=== PATIENT | female | born 1955 | race Caucasian/White ===

== ENCOUNTER 2023-07-17 12:00 | Day surgery (SDC) | payer OTHER ==
[~2023-07-17] VITALS: Ht 157.5 cm; Wt 76.8 kg
[~2023-07-17 12:00] MED LIST: DEXL60CA3; HYDCHL12.5 PO; LOSARTAN-HCTZ1 EACH PO; MULTI-VITAMIN1 EAC2
[2023-07-17] MEDS ORDERED: DEXILANT30 MG PO (12:27)
--- NOTE | 2023-07-17 12:42 | NUR ---
07/17/23 1242 Whitney Padron STEFAN AT BEDSIDE. CALL LIGHT WITHIN REACH. BED IN LOWEST POISITION. NO QUESTIONS OR CONCERNS AT THIS TIME.
--- NOTE | 2023-07-17 13:49 | NUR ---
07/17/23 1349 Jaycob Goetz ROPIVACAINE 0.5% 30 MLS MIXED & VERIFIED W/ EPI 0.15 ML (1MG/ML) PER ORDER, TO MAKE ROPIVACAINE 0.5% 1:200,000 FOR INJECTION AT OPSITE BY DR HARMON. 30 MLS INJECTED.
[2023-07-17 16:08] VITALS: BP 128/71
== END 2023-07-17 16:08 | disposition home or self-care (01) ==
LOC: ORSCSDS 12:00
PROVIDERS: Podiatrist Foot & Ankle Surgery
PROC: 0QSR04Z Reposition Left Toe Phalanx with Internal Fixation Device, Open Approach (ICD-10-PCS; principal; 2023-07-17 13:30)
PROC: 0SGL04Z Fusion of Left Tarsometatarsal Joint with Internal Fixation Device, Open Approach (ICD-10-PCS; principal; 2023-07-17 13:30)
DX: M21.612 Bunion of left foot (principal); M19.072 Primary osteoarthritis, left ankle and foot; I10 Essential (primary) hypertension; K21.9 Gastro-esophageal reflux disease without esophagitis; Z79.899 Other long term (current) drug therapy
CPT/HCPCS: A9270; C1713; J0171; J0690; J1100; J2405; J2704; J2795; J3010; J7120